=== PATIENT | female | born 1980 | race Caucasian/White ===

== ENCOUNTER → 2022-02-06 13:58 | Outpatient (BNVA) | payer OTHER, SELFPAY | PROVIDERS: Family Provider Nurse Practitioner; Visit Provider Obstetrics & Gynecology | DX: N92.0 Excessive and frequent menstruation with regular cycle (principal); N83.209 Unspecified ovarian cyst, unspecified side; N85.2 Hypertrophy of uterus; Z98.891 History of uterine scar from previous surgery | CPT/HCPCS: 76830 ==

== ENCOUNTER 2025-08-22 12:59 | Inpatient (IN) | payer OTHER, SELFPAY ==
[2025-08-22] VITALS (7 sets, daily range): BP systolic 171–197; BP diastolic 103–130; PULSE 63–105; RESP 16–20; TEMP 36.4–36.8; O2SAT 93–100; BMI 33.9
--- NOTE | 2025-08-22 13:06 | ECG_ITS ---
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 Measurements Intervals [place] Rate: 97 P: 36 CA: 148 QRS: 46 QRSD: 81 T: -8 QT: 339 QTc: 431 Interpretive Statements SINUS RHYTHM NONSPECIFIC T-WAVE ABNORMALITY No previous ECG available for comparison Electronically Signed On 08-23-2025 08:51:19 [employer] OFFICER by Marquita Silva M.D. [id number]
--- NOTE | 2025-08-22 13:37 | XRR_ITS ---
PROCEDURE INFORMATION: Exam: XR Chest Exam date and time: 08/22/2025 2:22 PM Age: 45 years old Clinical indication: Chest pressure; Mediastinal chest pain; Chest pain with hot flashes TECHNIQUE: Imaging protocol: Radiologic exam of the chest. Views: 1 view. COMPARISON: No relevant prior studies available. FINDINGS: Lungs: Unremarkable. No consolidation. Pleural spaces: Unremarkable. No pleural effusion. No pneumothorax. Heart/Mediastinum: Unremarkable. No cardiomegaly. Bones/joints: Unremarkable. XR/XR chest 1V portable [id number] IMPRESSION: No acute findings.
[2025-08-22 13:58] LABS: Hematocrit 40.1 % (36-47); Hemoglobin 13.10 g/dL (11.27-16.99); Mean Corpuscular HGB Conc 32.7 g/dL (30-55); Mean Corpuscular Hemoglobin 29.3 pg (27-33); Mean Corpuscular Volume 89.7 fl (85-98); Nucleated Red Blood Cells % 0 %; Platelet Count 335 10^3/cmm (157-399); Red Blood Count 4.47 10^6/uL (3.85-5.65); White Blood Count 10.47 10^3/uL (3.29-11.43)
[2025-08-22 14:25] LABS: Alanine Aminotransferase 23 U/L (0-33); Albumin Level 4.3 g/dL (3.5-5.2); Alkaline Phosphatase 78 U/L (35-105); Anion Gap 16.9 (5-19); Aspartate Amino Transferase 20 U/L (0-32); Blood Urea Nitrogen 4 mg/dL (6-20); Calcium 8.9 mg/dL (8.5-10.5); Carbon Dioxide 21 mmol/L (22-29); Chloride 106 mmol/L (98-107); Globulin 2.1 g/dL (1.3-4.6); Glucose 90 mg/dL (65-115); NT Pro B Type Natriuretic Pept 676 pg/mL (0-125); Osmolality Calculated 286 mOsm/kg (285-295); Potassium 3.9 mmol/L (3.5-5.1); Sodium 140 mmol/L (136-145); Total Protein 6.4 g/dL (6.6-8.7)
[2025-08-22 14:30] LABS: Troponin(5th) Baseline 315 ng/L (0-10)
--- NOTE | 2025-08-22 14:32 | W.ED.CHESTPA ---
HPI - Chest Pain General: Chief Complaint: Chest Pain Stated Complaint: CP and both Shoulder pain Time Seen by Provider: 08/22/25 14:29 History of Present Illness: 45-year-old female with no known past medical problems who presents to the emergency room with chest pain. This has been going on for several days now. Says it actually has improved some today. No shortness of breath. No lower extremity swelling. She does smoke tobacco and has a strong family history of heart disease. No known personal heart disease. No nausea or vomiting. No altered mental status. No cough. No fever. Related Data Home Medications ?Medication ?Instructions ?Recorded ?Confirmed hydrochlorothiazide 25 mg tablet 25 mg PO DAILY 01/27/22 02/11/22 Allergies Allergy/AdvReac Type Severity Reaction Status Date / Time Sulfa (Sulfonamide Allergy Unknown unknown Verified 02/11/22 15:53 Antibiotics) Review of Systems Narrative: Constitutional symptoms: Negative except as documented in HPI. Skin symptoms: Negative except as documented in HPI. Eye symptoms: Negative except as documented in HPI. ENMT symptoms: Negative except as documented in HPI. Respiratory symptoms: Negative except as documented in HPI. Cardiovascular symptoms: Negative except as documented in HPI. Gastrointestinal symptoms: Negative except as documented in HPI. Genitourinary symptoms: Negative except as documented in HPI. Musculoskeletal symptoms: Negative except as documented in HPI. Neurologic symptoms: Negative except as documented in HPI. Psychiatric symptoms: Negative except as documented in HPI. Endocrine symptoms: Negative except as documented in HPI. [facility] ED PFSH: Medical History (Updated 08/22/25 @ 14:51 by Marina Leonard MD) Ovarian cyst Surgical History (Updated 02/05/22 @ 19:51 by Edward Forte MD) H/O section S/P cholecystectomy Family History (Updated 01/27/22 @ 14:18 by Gely Whitten RN) Mother Diabetes Hyperlipidemia Hypertension Stroke Thyroid disease Heart disease Breast cancer, Onset Age: 45 Father Hyperlipidemia Hypertension Grandfather Colon cancer paternal, age unknown Family/Other Colon cancer, Onset Age: 63 paternal uncle Denies family history of Ovarian cancer Clotting disorder Anesthesia complication Bleeding disorder Uterine cancer Physical Exam Narrative: EXAM NARRATIVE: General: Alert, no acute distress. Skin: Warm, dry. Head: Normocephalic, atraumatic. Neck: Supple, trachea midline. Eye: Extraocular movements are intact. Ears, nose, mouth and throat: mucosa moist. Cardiovascular: Regular, Normal peripheral perfusion. Respiratory: Lungs are clear to auscultation, respirations are non-labored, breath sounds are equal, Symmetrical chest wall expansion. Gastrointestinal: Soft, Nontender, Non distended Musculoskeletal: Normal ROM, no deformity. Neurological: Alert and oriented, No focal neurological deficit observed. Psychiatric: Cooperative, appropriate mood & affect. Course Vital Signs: Vital signs: Vital Signs Temperature 98.3 F 08/22/25 13:15 Pulse Rate 64 08/22/25 15:00 Respiratory Rate 16 08/22/25 15:00 Blood Pressure 188/118 08/22/25 15:00 Pulse Oximetry 100 08/22/25 15:00 Oxygen Delivery Me thod Room Air 08/22/25 13:15 MDM - Chest Pain Medical Decision Making Medical decision making Patient's reason for coming to the emergency room: Chest pain Social determinants: Patient is unemployed. Patient is a smoker. I reviewed the patient's medical record. Last visit was in 2021 by telemedicine for an ovarian cyst. I reviewed the patient's current home meds Patient takes no chronic medications. Alternate historians: None Differential diagnosis for patient with chest pain includes but is not limited to and based on the above HPI, review of systems and physical exam: Pneumonia. unstable angina. angina. Acute coronary syndrome / CT. Pulmonary embolism. Costochondritis / musculoskeletal. Pleurisy. Pericarditis. Esophageal spasm. Pancreatitis. Cholecystitis. Orders placed to evaluate differential diagnosis based on the above differential, HPI and physical exam EKG: Time 1314. Rate 97. Normal sinus rhythm, nonspecific T wave changes, no ectopy, normal MD & QRS intervals, This was reviewed and interpreted by myself the ER physician at 1317 Lab Review: Laboratory results were reviewed and interpreted by myself the emergency room physician. No leukocytosis. No anemia. No renal failure. Initial troponin is elevated at 315. proBNP is mildly elevated. Chest x-ray: No acute process. No infiltrate. No pneumothorax. This was reviewed and interpreted by myself the emergency room physician. I also reviewed the radiology report. Assessment of risk: Level of risk: Tobacco dependence, strong family history. High risk patient for coronary artery disease. Hospitalization considerations: Patient is being admitted Clinical decision support: Heart score of 7. Recommends admission and cardiology consult. Reexamination: Patient remained stable. No increased work of breathing. No altered mental status. No focal motor deficits. Consultation: I spoke with Dr. Silva who is on-call for cardiology. He recommends Plavix, heparin, aspirin and admit to the hospitalist service. He will consult Consultation: I spoke with Dr. Dr. Headley who is on-call for the hospitalist service who agrees to admission. Assessment and plan: Non-ST elevation myocardial infarction Accelerated hypertension ?Heparin drip. Nitroglycerin. 300 mg p.o. Plavix. -I discussed the patient with the hospitalist on-call who is admitting the patient. - Discussed findings and plan with patient. Answered any questions. - All laboratory values were reviewed and interpreted personally by myself, the ER physician - All imaging was reviewed and interpreted personally by myself, the ER physician. - Evaluation and treatment of this problem were appropriate in the emergency setting Lab Data 08/22/25 13:48 08/22/25 13:48 Radiology Impressions Chest X-Ray 08/22/25 13:37 IMPRESSION: No acute findings. Laboratory Results WBC 10.47 10^3/uL (3.29-11.43) 08/22/25 13:48 RBC 4.47 10^6/uL (3.85-5.65) 08/22/25 13:48 Hgb 13.10 g/dL (11.27-16.99) 08/22/25 13:48 Hct 40.1 % (36-47) 08/22/25 13:48 MCV 89.7 fl (85-98) 08/22/25 13:48 MCH 29.3 pg (27-33) 08/22/25 13:48 MCHC 32.7 g/dL (30-55) 08/22/25 13:48 RDW 12.9 % (12.1-15.1) 08/22/25 13:48 Plt Count 335 10^3/cmm (157-399) 08/22/25 13:48 MPV 10.4 fL (7.4-10.4) 08/22/25 13:48 Neut % (Auto) 74.8 % 08/22/25 13:48 Lymph % (Auto) 18.2 % 08/22/25 13:48 Karnes % (Auto) 5.4 % 08/22/25 13:48 Eos % (Auto) 1.0 % 08/22/25 13:48 Baso % (Auto) 0.4 % 08/22/25 13:48 Neut # (Auto) 7.83 10^3/uL (1.8-7.7) H 08/22/25 13:48 Lymph # (Auto) 1.9 10^3/uL (0.8-4.8) 08/22/25 13:48 Karnes # (Auto) 0.6 10^3/uL (0.2-0.9) 08/22/25 13:48 Eos # (Auto) 0.1 10^3/uL (0.0-0.8) 08/22/25 13:48 Baso # (Auto) 0.0 10^3/uL (0.0-0.1) 08/22/25 13:48 Nucleated RBC % (auto) 0 % 08/22/25 13:48 Nucleated RBCs # 0.0 /100WBC 08/22/25 13:48 Sodium 140 mmol/L (136-145) 08/22/25 13:48 Potassium 3.9 mmol/L (3.5-5.1) 08/22/25 13:48 Chloride 106 mmol/L (98-107) 08/22/25 13:48 Carbon Dioxide 21 mmol/L (22-29) L 08/22/25 13:48 Anion Gap 16.9 (5-19) 08/22/25 13:48 BUN 4 mg/dL (6-20) L 08/22/25 13:48 Creatinine 0.9 mg/dL (0.5-0.9) 08/22/25 13:48 GFR Calculation 68.0 mL/min (90-130) L 08/22/25 13:48 Glucose 90 mg/dL (65-115) 08/22/25 13:48 Calculated Osmolality 286 mOsm/kg (285-295) 08/22/25 13:48 Calcium 8.9 mg/dL (8.5-10.5) 08/22/25 13:48 Total Bilirubin 0.3 mg/dL (0.15-1.2) 08/22/25 13:48 AST 20 U/L (0-32) 08/22/25 13:48 ALT 23 U/L (0-33) 08/22/25 13:48 Alkaline Phosphatase 78 U/L (35-105) 08/22/25 13:48 Troponin T Baseline 315 ng/L (0-10) H* 08/22/25 13:48 NT-Pro-B Natriuret Pep 676 pg/mL (0-125) H 08/22/25 13:48 Total Protein 6.4 g/dL (6.6-8.7) L 08/22/25 13:48 Albumin 4.3 g/dL (3.5-5.2) 08/22/25 13:48 Globulin 2.1 g/dL (1.3-4.6) 08/22/25 13:48 All radiology interpretation(s) finalized by discharge Clincial Decision Support The following clinical decision support tools were used to aid in care of the patient HEART Score -> History: Highly Suspicious, EKG: Non-specific Changes, Age: 45-64 yrs, Risk Factors: 1 or 2 Risk Factors, Troponin: Baseline Trop >45 ng/L. Resulting HEART Score: 7. 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
[2025-08-22] MEDS: heparin 5,000 unit/mL INJ 1 mL IVP (15:30)
[2025-08-22] MEDS: heparin drip 25,000 UNIT/500 ML PREMIX 25 UNIT IV (15:32)
--- NOTE | 2025-08-22 15:37 | ECG_ITS ---
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 Measurements Intervals [place] Rate: 86 P: 1 AL: 161 QRS: 6 QRSD: 89 T: 68 QT: 351 QTc: 421 Interpretive Statements SINUS RHYTHM NONSPECIFIC T-WAVE ABNORMALITY Compared to ECG 08/22/2025 13:14:02 No significant changes Electronically Signed On 08-24-2025 00:09:19 LOOM SETTER by Marquita Silva M.D. [id number]
--- NOTE | 2025-08-22 15:58 | USCV_ITS ---
Cyndi Godoy Age: 45 Gender: F : 1980 Exam Date: 08/22/2025 16:21 Ordering Phys: Tai Rocha MD Technologist: KORTNEY [place]am [place] [facility] [place] Indication: nstemi BP: 174 / 108 HR: 81 Rhythm: Sinus Technical Quality: Adequate MEASUREMENTS (Male / Female) Normal Values 2D ECHO LV Diastolic Diameter PLAX 5.7 cm 4.2 - 5.9 / 3.9 - 5.3 cm IVS Diastolic Thickness 0.9 cm 0.6 - 1.0 / 0.6 - 0.9 cm IVS Systolic Thickness 1.0 cm LVPW Diastolic Thickness 1.0 cm 0.6 - 1.0 / 0.6 - 0.9 cm LVPW Systolic Thickness 0.9 cm LVOT Diameter 2.0 cm LV Ejection Fraction 2D Teich 23.4 % LV Ejection Fraction MOD 4C 57.6 % LV Ejection Fraction MOD 2C 50.9 % LV Ejection Fraction 2C AL 52.4 % LA Diameter 2.7 cm RA Systolic Volume 4C AL 43.3 ml RA Systolic Volume 4C MOD 43.1 ml LA Sys Volume AL 31.3 cm cubed LA Sys Volume Index AL 15.2 cm cubed/m squared Aorta at Sinotubular Diameter 2.4 cm IVC Diameter 2.4 cm M-MODE LA Ao Ratio MM 1.2 AV Cusp Separation MM 1.7 cm DOPPLER AV Peak Velocity 107.0 cm/s LVOT Peak Velocity 77.0 cm/s AV Area Cont Eq vti 2.7 cm squared AV Area Cont Eq pk 2.2 cm squared MV Peak Velocity 79.0 cm/s MV Area PHT 4.8 cm squared Mitral E to A Ratio 0.9 TR Peak Velocity 159.0 cm/s TR Peak Gradient 10.1 mmHg TV Peak E Velocity 75.0 cm/s PV Peak Velocity 107.0 cm/s FINDINGS Left Ventricle Normal LV size with borderline low ejection fraction of 52%. Mild diffuse hypokinesis of the inferolateral wall segment Right Ventricle Right Atrium Normal right atrial size. Left Atrium Normal left atrial size. IA Septum Normal interatrial septum. Mitral Valve Thickened mitral valve. Aortic Valve No gross abnormalities no Tricuspid Valve No gross abnormalities in Pulmonic Valve Pulmonic valve not well visualized. Pericardium No pericardial effusion. Aorta Normal aortic annulus size. IVC Normal inferior vena cava. CONCLUSIONS Normal LV size with borderline low ejection fraction of 52%. Mild diffuse hypokinesis of the inferolateral wall segment. Thickened mitral valve. No significant stenotic or regurgitant lesions Normal chamber sizes There is no pericardial effusion. There are no intracardiac masses. No similar previous studies are available for comparison Dr Marquita Silva MD [facility] (Electronically Signed) Final Date: 22 August 2025 16:55 S
--- NOTE | 2025-08-22 15:59 | P.HP_ITS ---
Providers/Chief Complaint 2 Admitting Physician: Apolinar Headley MD Chief Complaint: CP and both Shoulder pain History of Present Illness Cyndi Godoy is a 45 year old female with a past medical history of hypertension, who presents [facility] for chest pain. Patient reports that she started developing chest pain last Thursday, was substernal radiating up to her neck, associated with shortness of breath she noticed that her blood pressure was elevated her systolic blood pressure was over 200, she tells me that she has a history of hypertension, she was diagnosed with it a few years ago, she thought it was secondary to her consumption of energy drinks, and she stopped using energy drinks and her blood pressure improved so she stopped her blood pressure medications. She denies being , she has had a bilateral tubal ligation. She denies using energy drinks. She does smoke. She does vape. Denies any drug use such as cocaine. She reports that today she had substernal chest pain radiating up to her neck, currently the chest pain has improved but is persisting to some degree she describes the pain as a pressure- like pain, aching in her chest Review of Systems 2 Const: Denies: fever(s) or chills Card: Reports: chest pain Medications/Allergies Home Medications ?Medication ?Instructions ?Recorded ?Confirmed ?Last Taken ?Type No Known Home Medications 08/22/2508/05 Unknown History Allergies Allergy/AdvReac Type Severity Reaction Status Date / Time Sulfa (Sulfonamide Allergy Unknown unknown Verified 02/11/22 15:53 Antibiotics) PFSH Acute 2 PFSH: Medical History Ovarian cyst Surgical History (Updated 02/05/22 @ 19:51 by Edward Forte MD) H/O section S/P cholecystectomy Family History (Updated 01/27/22 @ 14:18 by Gely Whitten RN) Mother Diabetes Hyperlipidemia Hypertension Stroke Thyroid disease Heart disease Breast cancer, Onset Age: 45 Father Hyperlipidemia Hypertension Grandfather Colon cancer paternal, age unknown Family/Other Colon cancer, Onset Age: 63 paternal uncle Denies family history of Ovarian cancer Clotting disorder Anesthesia complication Bleeding disorder Uterine cancer Vitals/I&O/Wt Last Vital Signs Temp 98.3 F 08/22/25 13:15 Pulse 64 08/22/25 15:00 Resp 16 08/22/25 15:00 BP 188/118 08/22/25 15:00 Pulse Ox 100 08/22/25 15:00 O2 Del Method Room Air 08/22/25 13:15 Weight last 48 hrs Weight 89.811 kg Physical Exam 2 Const: COMMON NORMALS: no acute distress and patient oriented x3 HENMT: COMMON NORMALS: normocephalic HEAD & SCALP: normocephalic Resp: COMMON NORMALS: normal respiratory effort, No retractions, No use of accessory muscles and clear to auscultation bilaterally AUSCULTATION: clear to auscultation bilaterally Cardio: COMMON NORMALS: regular rate, regular rhythm, S1 normal heart sound present and S2 normal heart sound present RATE: regular rate RHYTHM: r egular rhythm HEART SOUNDS: S1 normal heart sound present and S2 normal heart sound present GI: COMMON NORMALS: Normal to inspection, nondistended, normoactive bowel sounds present, Soft to palpation and non-tender Extremity: COMMON NORMALS: no calf tenderness and no pedal edema Neuro: COMMON NORMALS: patient oriented x3 Psych: COMMON NORMALS: mental status grossly normal Data 08/22/25 13:48 08/22/25 13:48 A&P Assessment and plan 1. Accelerated hypertension: 2. Non-ST elevated myocardial infarction: 3. Unstable angina: Plan: Unstable angina - With NSTEMI - Initial troponin 315, no acute ST-T wave changes, T wave inversion in lead III Plan -Keep n.p.o. -Stat cardiac echo -Plavix 300 mg, followed by 75 mg -Aspirin 325 followed by 81 mg -Heparin drip -Monitor for recurrent chest pain -Nitro for apparent chest pain -Coreg -Cardiology consulted -Full code -Heparin drip for DVT prophylaxis PDMP PDMP Reviewed: Not Reviewed Attestations 2 Medical Necessity Statement*: Patient requires hospitalization, inpatient, greater than 2 midnights for chest pain, unstable angina, NSTEMI Diagnoses Accelerated hypertension I10 Non-ST elevated myocardial infarction I21.4 Unstable angina I20.0
[2025-08-22 16:11] LABS: Troponin 5 2HR 312.2 ng/L (0-10); Troponin 5 2HR Delta -2.8 ABS# (0-10)
--- NOTE | 2025-08-22 16:45 | PC.NURSE ---
Pt arrives to CSU from ED. She is alert and oriented x 4. NO chest pain rpeorted. Resp even and unlabored. Heparin gtt infusing without difficultly. Sinus rhythm noted on monitor.
[2025-08-22] MEDS: pantoprazole 40 mg SDV IVP (17:07)
[2025-08-22 17:32] LABS: Cholesterol 233 mg/dL (0-200); HDL Cholesterol 41 mg/dL (60-100); NT Pro B Type Natriuretic Pept 701 pg/mL (0-125); Thyroid Stimulating Hormone 2.30 uIU/mL (0.27-4.20); Triglycerides 106 mg/dL (0-150)
--- NOTE | 2025-08-22 17:40 | P.CONIM_ITS ---
Providers/Reason For Consult 2 Consulting Physician/Specialty*: SHERIN Silva MD/cardiology Reason for Consult*: Patient with chest pain and elevated troponin T. Requesting Physician: Dr. Headley Attending Physician: Apolinar Headley MD History of Present Illness History of Present Illness Cyndi Godoy is a 45 year old female with a history of high blood pressure, presenting with chest pain and elevated troponin T. This patient has no significant past medical history. Apparently she has been in her baseline state of health up until last Thursday when she had the first episode of chest pain. The pain was on the upper part of the chest, radiating to both sides of the neck and to the back. She had some associated shortness of breath and nausea. No palpitations, dizziness or syncopal episode. Initially the pain was moderate to severe. The pain might have lasted for a couple of hours and then gradually subsided. She had some brief episodes of pain through the night. But since Thursday morning, she has been feeling okay with no recurrence of chest pain up until this morning when she started having similar type of pain. No definite precipitating factors. Intensity of the pain was more or less similar. Because of the recurrence of these pains, she was brought to the hospital. Her troponin T was found to be elevated in the 300 range at the baseline. No significant delta at 2 hours. She has no previous history for coronary artery disease, myocardial infarction or congestive heart failure. No history for any hypertension or diabetes. She was found to have high cholesterol based on the blood test today. She smokes half pack a day. She also vapes once in a while. No alcohol abuse or any other substance abuse. Her father is known to have coronary disease and had a coronary artery bypass surgery in his 60s. No other relevant family history. Review of Systems 2 Narrative: CONSTITUTIONAL: No fever or chills. EYES: No blurring of vision or other visual disturbances lately. ENT: No hoarseness of voice, auditory disturbances or sore throat. CARDIOVASCULAR: As mentioned above. RESPIRATORY: No significant cough. GASTROINTESTINAL: No hematemesis or melena. GENITOURINARY: No dysuria or hematuria. INTEGUMENTARY: No skin rashes or history of skin cancer. NEURO: No transient ischemic attacks or amaurosis. PSYCHIATRIC: No history of psychosis or major depression. HEMATOLOGIC: No bleeding disorders or significant anemia. ENDOCRINE: No history of polyuria or polydipsia. MUSCULOSKELETAL: No recent joint pain or swelling. ALLERGY/IMMUNOLOGY: As mentioned above. Medications/Allergies Home Medications ?Medication ?Instructions ?Recorded ?Confirmed ?Last Taken ?Type No Known Home Medications 08/22/2508/05 Unknown History Allergies Allergy/AdvReac Type Severity Reaction Status Date / Time Sulfa (Sulfonamide Allergy Unknown unknown Verified 02/11/22 15:53 Antibiotics) Current Medications Generic Name Dose Route Start Last Admin Trade Name Olegario PRN Reason Stop Dose Admin Carvedilol 3.125 mg 08/22/25 17:00 08/22/25 17:07 Carvedilol 3.125 Mg Tablet PO 3.125 mg Q12H STORMY Administration Heparin Sodium/Sodium Chloride 25,000 unit in 500 mls @ 0 mls/hr 08/22/25 14:45 08/22/25 15:32 Heparin Drip IV 13.92 unit/kg/hr CONT STORMY 25 mls/hr Protocol Administration Per Protocol Pantoprazole Sodium 40 mg 08/22/25 16:43 08/22/25 17:07 Pantoprazole 40 Mg Sdv IVP 40 mg Q24H STORMY Administration PFSH Acute 2 PFSH: Medical History Ovarian cyst Surgical History H/O section S/P cholecystectomy Family History Mother Diabetes Hyperlipidemia Hypertension Stroke Thyroid disease Heart disease Breast cancer, Onset Age: 45 Father Hyperlipidemia Hypertension Grandfather Colon cancer paternal, age unknown Family/Other Colon cancer, Onset Age: 63 paternal uncle Denies family history of Ovarian cancer Clotting disorder Anesthesia complication Bleeding disorder Uterine cancer Vitals/I&O/Wt Last Vital Signs Temp 97.5 F L 08/22/25 16:43 Pulse 93 08/22/25 16:43 Resp 19 H 08/22/25 16:43 BP 178/110 08/22/25 16:43 Pulse Ox 100 08/22/25 16:43 O2 Del Method Room Air 08/22/25 16:43 Weight last 48 hrs Weight 203 lb 11.314 oz Weight 198 lb Physical Exam 2 Narrative: GENERAL: The patient is alert and oriented times three. Not in any acute distress. Moderately obese HEENT: No significant pallor, icterus or lymphadenopathy.Oral cavity: There are no mucous membrane lesions. NECK: Trachea appears to be central. No masses noted. No JVD or thyromegaly appreciated. RESPIRATORY: Chest is symmetrical. No intercostals muscle retraction or any accessory muscle activation. There is no chest wall tenderness. Breath sounds are heard bilaterally. No rales or rhonchi heard. No evidence of any consolidation. BREASTS: Deferred. HEART: The heart sounds are normal. No S3 or S4. No significant murmurs. No pericardial rub ABDOMEN: No vessel pulsations or distention. No tenderness. No organomegaly appreciated. Bowel sounds are normally heard. : Deferred. RECTAL: Deferred. LYMPHATIC: No lymphadenopathy noted in the neck. EXTREMITIES: No edema or cyanosis. No clubbing. MUSCULOSKELETAL: No acute joint deformities or swelling SKIN: There are no significant rashes or ecchymosis NEUROPSYCHIATRIC: The patient is alert and oriented x3. Appears to be in a good mood. No tremors or rigidity noted. Data 08/22/25 13:48 08/22/25 13:48 Other Labs: Laboratory Last Values WBC 10.47 10^3/uL (3.29-11.43) 08/22/25 13:48 RBC 4.47 10^6/uL (3.85-5.65) 08/22/25 13:48 Hgb 13.10 g/dL (11.27-16.99) 08/22/25 13:48 Hct 40.1 % (36-47) 08/22/25 13:48 MCV 89.7 fl (85-98) 08/22/25 13:48 MCH 29.3 pg (27-33) 08/22/25 13:48 MCHC 32.7 g/dL (30-55) 08/22/25 13:48 RDW 12.9 % (12.1-15.1) 08/22/25 13:48 Plt Count 335 10^3/cmm (157-399) 08/22/25 13:48 MPV 10.4 fL (7.4-10.4) 08/22/25 13:48 Neut % (Auto) 74.8 % 08/22/25 13:48 Lymph % (Auto) 18.2 % 08/22/25 13:48 [place] % (Auto) 5.4 % 08/22/25 13:48 Eos % (Auto) 1.0 % 08/22/25 13:48 Baso % (Auto) 0.4 % 08/22/25 13:48 Neut # (Auto) 7.83 10^3/uL (1.8-7.7) H 08/22/25 13:48 Lymph # (Auto) 1.9 10^3/uL (0.8-4.8) 08/22/25 13:48 [place] # (Auto) 0.6 10^3/uL (0.2-0.9) 08/22/25 13:48 Eos # (Auto) 0.1 10^3/uL (0.0-0.8) 08/22/25 13:48 Baso # (Auto) 0.0 10^3/uL (0.0-0.1) 08/22/25 13:48 Nucleated RBC % (auto) 0 % 08/22/25 13:48 Nucleated RBCs # 0.0 /100WBC 08/22/25 13:48 Sodium 140 mmol/L (136-145) 08/22/25 13:48 Potassium 3.9 mmol/L (3.5-5.1) 08/22/25 13:48 Chloride 106 mmol/L (98-107) 08/22/25 13:48 Carbon Dioxide 21 mmol/L (22-29) L 08/22/25 13:48 Anion Gap 16.9 (5-19) 08/22/25 13:48 BUN 4 mg/dL (6-20) L 08/22/25 13:48 Creatinine 0.9 mg/dL (0.5-0.9) 08/22/25 13:48 GFR Calculation 68.0 mL/min (90-130) L 08/22/25 13:48 Glucose 90 mg/dL (65-115) 08/22/25 13:48 Estimat Average Glucose 103 08/22/25 13:48 Hemoglobin A1c 5.2 % (4.0-6.0) 08/22/25 13:48 Calculated Osmolality 286 mOsm/kg (285-295) 08/22/25 13:48 Calcium 8.9 mg/dL (8.5-10.5) 08/22/25 13:48 Total Bilirubin 0.3 mg/dL (0.15-1.2) 08/22/25 13:48 AST 20 U/L (0-32) 08/22/25 13:48 ALT 23 U/L (0-33) 08/22/25 13:48 Alkaline Phosphatase 78 U/L (35-105) 08/22/25 13:48 Troponin T Baseline 315 ng/L (0-10) H* 08/22/25 13:48 Troponin T 120 Minute 312.2 ng/L (0-10) H 08/22/25 15:26 Delta Troponin T -2.8 ABS# (0-10) L 08/22/25 15:26 NT-Pro-B Natriuret Pep 701 pg/mL (0-125) H 08/22/25 15:26 Total Protein 6.4 g/dL (6.6-8.7) L 08/22/25 13:48 Albumin 4.3 g/dL (3.5-5.2) 08/22/25 13:48 Globulin 2.1 g/dL (1.3-4.6) 08/22/25 13:48 Triglycerides 106 mg/dL (0-150) 08/22/25 15:26 Cholesterol 233 mg/dL (0-200) H 08/22/25 15:26 LDL Cholesterol, Calc 171 mg/dL (50-129) H 08/22/25 15:26 HDL Cholesterol 41 mg/dL (60-100) L 08/22/25 15:26 LDL/HDL Ratio 4.17 RATIO (0.00-3.22) H 08/22/25 15:26 Cholesterol/HDL Ratio 5.68 mg/dL (0.0-4.40) H 08/22/25 15:26 TSH 2.30 uIU/mL (0.27-4.20) 08/22/25 15:26 Other data: The EKG showed normal sinus rhythm with nonspecific ST-T changes in the anterolateral and inferior leads A&P Assessment and plan 1. Non-ST elevated myocardial infarction: In view of presenting symptoms , abnormal EKG and the elevated troponin T, her clinical features are consistent with a an unstable angina with a non-ST elevation myocardial infarction. 2. Accelerated hypertension: Patient had a blood pressure of 193/124 at the time of admission. The blood pressure seems to be coming down. I may add amlodipine 5 mg p.o. now and daily. 3. Dyslipidemia: Patient was found to have elevated LDL of 171. I may start her on a higher dose of statin namely Lipitor 80 mg p.o. now and daily. She need to have follow-up evaluation for any liver or muscle injury. 4. Smoking addiction: Patient is strongly advised to quit smoking. Plan: Echocardiogram was reviewed. The LV ejection fraction was around 52%. She was found to have mild diffuse hypokinesis of the inferolateral wall segment. Patient may be severe with Plavix, Lovenox, aspirin, beta-natalya, nitrates and other symptomatic measures. Patient requires a cardiac catheterization to further evaluate her coronary status and decide on further management. The risks and benefits of the procedure discussed with the patient. The risk of bleeding, hematoma, vascular injury, myocardial infarction, myocardial perforation, malignant cardiac arrhythmias ,CVA, renal failure and other concomitant complications were explained in detail. Patient understood this well and consented to proceed. We may consider doing the coronary angiogram sometime tomorrow. She will be kept n.p.o. after midnight. Possible cardiac catheterization ttomorrow Based on the results of the above tests and the patient's clinical progress, further recommendations will be made. Thank you for the opportunity to evaluate this patient and make these recommendations PDMP PDMP Reviewed: Not Reviewed Coding Level of Care Code 92930 Diagnoses Non-ST elevated myocardial infarction I21.4 Accelerated hypertension I10 Dyslipidemia E78.5 Smoking addiction F17.200
[2025-08-22 18:44] LABS: Estmated Average Glucose 103; Hemoglobin A1C 5.2 % (4.0-6.0)
--- NOTE | 2025-08-22 19:53 | ECG_ITS ---
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 Measurements Intervals [place] Rate: 82 P: 60 VT: 189 QRS: 55 QRSD: 90 T: -14 QT: 357 QTc: 417 Interpretive Statements SINUS RHYTHM LOW QRS VOLTAGE IN PRECORDIAL LEADS [QRS DEFLECTION < 1.0 mV IN CHEST LEADS] NONSPECIFIC T-WAVE ABNORMALITY Compared to ECG 08/22/2025 15:28:33 Low QRS voltage now present T-wave abnormality still present Electronically Signed On 08-23-2025 09:53:05 [employer] by Marquita Silva M.D. [email or web address]
[2025-08-22 21:46] LABS: Partial Thromboplastin Time 108.9 SECONDS (23.9-36.7); Troponin 5 6HR 362.0 ng/L (0-10); Troponin 5 6HR Delta 47.0 ng/L (0-12)
[2025-08-23] VITALS (39 sets, daily range): BP systolic 113–171; BP diastolic 65–122; PULSE 66–107; RESP 12–28; TEMP 36.7–37; O2SAT 85–98; BMI 32.4
[2025-08-23 04:26] LABS: Hematocrit 39.5 % (36-47); Hemoglobin 13.00 g/dL (11.27-16.99); Mean Corpuscular HGB Conc 32.9 g/dL (30-55); Mean Corpuscular Hemoglobin 29.6 pg (27-33); Mean Corpuscular Volume 90.0 fl (85-98); Nucleated Red Blood Cells % 0 %; Platelet Count 330 10^3/cmm (157-399); Red Blood Count 4.39 10^6/uL (3.85-5.65); White Blood Count 9.76 10^3/uL (3.29-11.43)
[2025-08-23 04:39] LABS: Partial Thromboplastin Time 78.7 SECONDS (23.9-36.7)
[2025-08-23 04:47] LABS: Alanine Aminotransferase 20 U/L (0-33); Albumin Level 4.0 g/dL (3.5-5.2); Alkaline Phosphatase 73 U/L (35-105); Anion Gap 14.7 (5-19); Aspartate Amino Transferase 18 U/L (0-32); Blood Urea Nitrogen 6 mg/dL (6-20); Calcium 8.8 mg/dL (8.5-10.5); Carbon Dioxide 24 mmol/L (22-29); Chloride 105 mmol/L (98-107); Globulin 2.4 g/dL (1.3-4.6); Glucose 88 mg/dL (65-115); Magnesium 2.2 mg/dL (1.7-2.3); Osmolality Calculated 287 mOsm/kg (285-295); Potassium 3.7 mmol/L (3.5-5.1); Sodium 140 mmol/L (136-145); Total Protein 6.4 g/dL (6.6-8.7)
--- NOTE | 2025-08-23 08:25 | PM.PN ---
Subjective Medications: Medication Review Details: Current Medications Acetaminophen (Acetaminophen 325 Mg Tablet) 650 mg PO Q6H PRN PRN Reason: Mild/Mod Pain Or Temp >/= 101 Amlodipine Besylate (Amlodipine 5 Mg Tablet) 5 mg PO DAILY [facility] Last Admin: 08/23/25 04:41 Dose: 5 mg Aspirin (Aspirin 81 Mg Ec Tablet) 81 mg PO DAILY [facility] Last Admin: 08/23/25 04:41 Dose: 81 mg Atorvastatin Calcium (Atorvastatin 40 Mg Tablet) 80 mg PO BEDTIME [facility] Last Admin: 08/22/25 20:59 Dose: 80 mg Carvedilol (Carvedilol 3.125 Mg Tablet) 3.125 mg PO Q12H [facility] Last Admin: 08/23/25 04:41 Dose: 3.125 mg Clopidogrel Bisulfate (Clopidogrel 75 Mg Tablet) 75 mg PO DAILY [facility] Last Admin: 08/23/25 04:41 Dose: 75 mg Heparin Sodium (Porcine) (Heparin 5,000 Unit/Ml Inj 1 Ml) 0 unit IVP PRN PRN; Protocol PRN Reason: Heparin Weight Based Protocol -Subsequent Bolus Heparin Sodium/Sodium Chloride (Heparin Drip) 25,000 unit in 500 mls @ 0 mls/hr IV CONT [facility]; Protocol Last Titration: 08/23/25 04:49 Dose: 10.02 unit/kg/hr, 18 mls/hr Morphine Sulfate (Morphine 4 Mg/Ml Sdv 1 Ml) 2 mg IVP Q4H PRN PRN Reason: SEVERE PAIN Naloxone HCl (Naloxone 0.4 Mg/Ml Sdv) 0.1 mg IVP Q2M PRN PRN Reason: OPIATERV Nitroglycerin (Nitroglycerin 0.4 Mg Sublingual Tablet) 0.4 mg SUBLINGUAL Q5M PRN PRN Reason: CHEST PAIN Ondansetron HCl (Ondansetron 2 Mg/Ml Sdv 2 Ml) 4 mg IVP Q8H PRN PRN Reason: vomiting, or N/V if npo Pantoprazole Sodium (Pantoprazole 40 Mg Sdv) 40 mg IVP Q24H [facility] Last Admin: 08/22/25 17:07 Dose: 40 mg Vitals/I&O/Wt Last Vital Signs Temp 98.5 F 08/23/25 00:00 Pulse 73 08/23/25 04:00 Resp 12 08/23/25 04:00 BP 151/97 08/23/25 04:00 Pulse Ox 97 08/23/25 04:00 O2 Del Method Room Air 08/23/25 04:00 08/22/25 08/23/25 08/23/25 22:59 06:59 14:59 Intake Total 161.667 / 161.667 136.333 / 298.000 Balance 161.667 / 161.667 136.333 / 298.000 Weight last 48 hrs Weight 195 lb 1.745 oz Weight 203 lb 11.314 oz Weight 198 lb Physical Exam Narrative: GENERAL: The patient is alert and oriented times three. Not in any acute distress. Moderately obese HEENT: No significant pallor, icterus or lymphadenopathy.Oral cavity: There are no mucous membrane lesions. NECK: Trachea appears to be central. No masses noted. No JVD or thyromegaly appreciated. RESPIRATORY: Chest is symmetrical. No intercostals muscle retraction or any accessory muscle activation. There is no chest wall tenderness. Breath sounds are heard bilaterally. No rales or rhonchi heard. No evidence of any consolidation. BREASTS: Deferred. HEART: The heart sounds are normal. No S3 or S4. No significant murmurs. No pericardial rub ABDOMEN: No vessel pulsations or distention. No tenderness. No organomegaly appreciated. Bowel sounds are normally heard. : Deferred. RECTAL: Deferred. LYMPHATIC: No lymphadenopathy noted in the neck. EXTREMITIES: No edema or cyanosis. No clubbing. MUSCULOSKELETAL: No acute joint deformities or swelling SKIN: There are no significant rashes or ecchymosis NEUROPSYCHIATRIC: The patient is alert and oriented x3. Appears to be in a good mood. No tremors or rigidity noted. Data 08/23/25 03:56 08/23/25 03:56 Other Labs: Laboratory Last Values WBC 9.76 10^3/uL (3.29-11.43) 08/23/25 03:56 RBC 4.39 10^6/uL (3.85-5.65) 08/23/25 03:56 Hgb 13.00 g/dL (11.27-16.99) 08/23/25 03:56 Hct 39.5 % (36-47) 08/23/25 03:56 MCV 90.0 fl (85-98) 08/23/25 03:56 MCH 29.6 pg (27-33) 08/23/25 03:56 MCHC 32.9 g/dL (30-55) 08/23/25 03:56 RDW 12.9 % (12.1-15.1) 08/23/25 03:56 Plt Count 330 10^3/cmm (157-399) 08/23/25 03:56 MPV 10.8 fL (7.4-10.4) H 08/23/25 03:56 Neut % (Auto) 64.6 % 08/23/25 03:56 Lymph % (Auto) 26.9 % 08/23/25 03:56 [place] % (Auto) 5.9 % 08/23/25 03:56 Eos % (Auto) 1.7 % 08/23/25 03:56 Baso % (Auto) 0.5 % 08/23/25 03:56 Neut # (Auto) 6.29 10^3/uL (1.8-7.7) 08/23/25 03:56 Lymph # (Auto) 2.6 10^3/uL (0.8-4.8) 08/23/25 03:56 [place] # (Auto) 0.6 10^3/uL (0.2-0.9) 08/23/25 03:56 Eos # (Auto) 0.2 10^3/uL (0.0-0.8) 08/23/25 03:56 Baso # (Auto) 0.1 10^3/uL (0.0-0.1) 08/23/25 03:56 Nucleated RBC % (auto) 0 % 08/23/25 03:56 Nucleated RBCs # 0.0 /100WBC 08/23/25 03:56 APTT 78.7 SECONDS (23.9-36.7) H 08/23/25 03:56 Sodium 140 mmol/L (136-145) 08/23/25 03:56 Potassium 3.7 mmol/L (3.5-5.1) 08/23/25 03:56 Chloride 105 mmol/L (98-107) 08/23/25 03:56 Carbon Dioxide 24 mmol/L (22-29) 08/23/25 03:56 Anion Gap 14.7 (5-19) 08/23/25 03:56 BUN 6 mg/dL (6-20) 08/23/25 03:56 Creatinine 0.9 mg/dL (0.5-0.9) 08/23/25 03:56 GFR Calculation 68.0 mL/min (90-130) L 08/23/25 03:56 Glucose 88 mg/dL (65-115) 08/23/25 03:56 Estimat Average Glucose 103 08/22/25 13:48 Hemoglobin A1c 5.2 % (4.0-6.0) 08/22/25 13:48 Calculated Osmolality 287 mOsm/kg (285-295) 08/23/25 03:56 Calcium 8.8 mg/dL (8.5-10.5) 08/23/25 03:56 Phosphorus 3.1 mg/dL (2.5-4.5) 08/23/25 03:56 Magnesium 2.2 mg/dL (1.7-2.3) 08/23/25 03:56 Total Bilirubin 0.4 mg/dL (0.15-1.2) 08/23/25 03:56 AST 18 U/L (0-32) 08/23/25 03:56 ALT 20 U/L (0-33) 08/23/25 03:56 Alkaline Phosphatase 73 U/L (35-105) 08/23/25 03:56 Troponin T Baseline 315 ng/L (0-10) H* 08/22/25 13:48 Troponin T 120 Minute 312.2 ng/L (0-10) H 08/22/25 15:26 Delta Troponin T -2.8 ABS# (0-10) L 08/22/25 15:26 Troponin T Hi Sens 6Hr 362.0 ng/L (0-10) H 08/22/25 21:00 Troponin T Hi Sens 6Hr Delta 47.0 ng/L (0-12) H* 08/22/25 21:00 NT-Pro-B Natriuret Pep 701 pg/mL (0-125) H 08/22/25 15:26 Total Protein 6.4 g/dL (6.6-8.7) L 08/23/25 03:56 Albumin 4.0 g/dL (3.5-5.2) 08/23/25 03:56 Globulin 2.4 g/dL (1.3-4.6) 08/23/25 03:56 Triglycerides 106 mg/dL (0-150) 08/22/25 15: Cholesterol 233 mg/dL (0-200) H 08/22/25 15: LDL Cholesterol, Calc 171 mg/dL (50-129) H 08/22/25 15: HDL Cholesterol 41 mg/dL (60-100) L 08/22/25 15: LDL/HDL Ratio 4.17 RATIO (0.00-3.22) H 08/22/25 15: Cholesterol/HDL Ratio 5.68 mg/dL (0.0-4.40) H 08/22/25 15: TSH 2.30 uIU/mL (0.27-4.20) 08/22/25 15:26 A&P Assessment and plan 1. Non-ST elevated myocardial infarction: In view of presenting symptoms , abnormal EKG and the elevated troponin T, her clinical features are consistent with a an unstable angina with a non-ST elevation myocardial infarction. She seems to be stable hemodynamically. 2. Accelerated hypertension: Patient had a blood pressure of 193/124 at the time of admission. The blood pressure seems to be coming down. I may add amlodipine 5 mg p.o. now and daily. She received the first dose of amlodipine last night. The blood pressure seems to be responding slowly. 3. Dyslipidemia: Patient was found to have elevated LDL of 171. I may start her on a higher dose of statin namely Lipitor 80 mg p.o. now and daily. She need to have follow-up evaluation for any liver or muscle injury. So far she is tolerating the medication well 4. Smoking addiction: Patient is strongly advised to quit smoking. Plan: Patient is scheduled for the cardiac catheterization this morning. She is NPO. Based on the angiogram findings, further recommendations will be made Risks, benefits and alternatives were discussed. Patient understood this well and consented to proceed. PDMP PDMP Reviewed: Not Reviewed Attestations Medical Necessity Statement*: Patient requires continued hospital stay for close monitoring and further management Coding Level of Care Code 30940 Diagnoses Non-ST elevated myocardial infarction I21.4 Accelerated hypertension I10 Dyslipidemia E78.5 Smoking addiction F17.200
--- NOTE | 2025-08-23 08:28 | W.PM.OPSUD ---
Surgery/Procedure H&P Update DATE OF PROCEDURE: August 23, 2025 DATE H&P PERFORMED: 08/22/25 H&P UPDATE INFORMATION: I have reviewed H&P completed within last 30 days, I have examined patient prior to procedure and No changes to prior documentation PREOP DIAGNOSIS: ASHD PRIMARY INDICATION FOR PROCEDURE: Unstable angina/NSTEMI PLANNED PROCEDURE: Left heart catheterization with a left and right coronary angiogram and possible PCI PATIENT REASSESSED PRIOR TO SEDATION, WITH NO CHANGE NOTED: Yes PHYSICAL EXAM: alert, oriented x 3, clear to auscultation bilaterally, regular rate & rhythm and operative site marked AIRWAY EVAL/ANESTHESIA PLAN: normal airway, see other exam findings, ASA III, Monitored Anesthesia, Local Anesthesia, Risks, benefits & alternatives of sedation and/or procedure discussed and Patient agrees to continue as planned
--- NOTE | 2025-08-23 09:30 | PC.CHAP ---
Pastoral Care Encounter/Spiritual Assessment Type of Contact [] Declined checker cashier visit [] Patient/Family/Request visit [] Outpatient visit [] Follow-up visit [] Physician referral [] Code/Alert [x] Routine visit [] Staff referral [] Actively dying [] Patient sleeping [x] Family support [] [] Out of room [] Palliative care [] [] Receiving care in room [] Pre-surgical visit [] Trauma [] Long length of stay [] ICU visit [] Other: Relational/Emotional Strength [x] Patient feels connected with others/family/visitors/staff [] Distress [] Loneliness/isolation [] Abandonment Spirituality of Patient [x] Person of Jaye [] Attends Buddhist of their Jaye [x] Believes in Prayer [] Reads Bible or Buddhist materials [] There are Spiritual issues to be addressed Textile Broker Interventions [x] Prayer [x] Active listening [] Non-anxious presence [x] Spiritual/emotional support [] Crisis/trauma care [] Spiritual counseling [] Bereavement support [] Provided bereavement packet [] Provided Bible/devotional materials [] Provided toy/stuffed animal, coloring book to patient or family member [] Provided Communion [] Anointing/[place]rison [] Salvation [x] Completed spiritual assessment [] Other: Impact on Illness or Injury [] Angry [] Fearful [] Anxious [] Often cries [] Exhaustion [] Unable to work [] Unable to attend pentecostalism [] Unable to walk/stand [] Unable to read [] Unable to drive [] Unable to eat/drink [] Unable to sleep [] Unable to be with family [] Patient intubated [] Other: Summary Time spent with patient 5 min
--- NOTE | 2025-08-23 10:14 | PM.PROC ---
Procedure Note: Date of procedure: 08/23/25 Pre-procedure diagnosis: NSTEMI Post-procedure diagnosis: other Procedure: Diagnostic angiogram performed by Dr. Silva. Intervention performed by Dr. Marie. Severe mid left circumflex artery stenosis. Status post PCI with 1 stent. Mid LAD has moderate stenosis. iFR was performed with significant value of 0.89. Status post PCI with 1 stent. RCA is patent. Dual antiplatelet therapy with aspirin and Plavix. High intensity statin therapy. Performing Provider: Bob Marie Complications: None Condition: stable Coding Level of Care Code Acute Code for [facility] Fwd
--- NOTE | 2025-08-23 10:22 | PC.NURSE ---
patient received from laboratory aide s/p [facility] with right femoral access. Sheath in place with pressure bag. Site is free from bleeding or hematoma formation. Right lower extremity warm to touch with pedal pulses present. Patient also has TR band in place to right wrist for attempted access only. Instructed patient on site care with restrictions. patient verbalized understanding.
[2025-08-23 12:27] LABS: Partial Thromboplastin Time 230.1 SECONDS (23.9-36.7)
--- NOTE | 2025-08-23 12:57 | P.PN_ITS ---
Subjective 2 Subjective: Patient was seen this morning, he is alert oriented x 3, following commands, no chest pain, status post coronary angiogram and stenting Vitals/I&O/Wt Last Vital Signs Temp 98.6 F 08/23/25 08:00 Pulse 77 08/23/25 12:00 Resp 14 08/23/25 12:00 BP 134/85 08/23/25 12:00 Pulse Ox 96 08/23/25 08:00 O2 Del Method Room Air 08/23/25 10:20 08/22/25 08/23/25 08/23/25 22:59 06:59 14:59 Intake Total 161.667 / 161.667 136.333 / 298.000 76.8 / 76.8 Balance 161.667 / 161.667 136.333 / 298.000 76.8 / 76.8 Weight last 48 hrs Weight 88.5 kg Weight 92.4 kg Weight 89.811 kg Physical Exam 2 Const: COMMON NORMALS: no acute distress and patient oriented x3 Resp: COMMON NORMALS: normal respiratory effort, No retractions, No use of accessory muscles and clear to auscultation bilaterally AUSCULTATION: clear to auscultation bilaterally Cardio: COMMON NORMALS: regular rate, regular rhythm, S1 normal heart sound present and S2 normal heart sound present RATE: regular rate RHYTHM: r egular rhythm HEART SOUNDS: S1 normal heart sound present and S2 normal heart sound present GI: COMMON NORMALS: Normal to inspection, nondistended, normoactive bowel sounds present and non-tender Extremity: COMMON NORMALS: no calf tenderness and no pedal edema Neuro: COMMON NORMALS: patient oriented x3 Psych: COMMON NORMALS: mental status grossly normal Data 08/23/25 03:56 08/23/25 03:56 A&P Assessment and plan 1. Accelerated hypertension: 2. Non-ST elevated myocardial infarction: 3. Unstable angina: Plan: Unstable angina - With NSTEMI - Initial troponin 315, no acute ST-T wave changes, T wave inversion in lead III CONCLUSIONS Normal LV size with borderline low ejection fraction of 52%. Mild diffuse hypokinesis of the inferolateral wall segment. Thickened mitral valve. No significant stenotic or regurgitant lesions Normal chamber sizes There is no pericardial effusion. There are no intracardiac masses. No similar previous studies are available for comparison - Status post tenting mid left circumflex, mid LAD Plan - Cardiac diet -Stat cardiac echo -Plavix 300 mg, followed by 75 mg -Aspirin 325 followed by 81 mg - Switch DVT prophylaxis Lovenox -Monitor for recurrent chest pain -Nitro for apparent chest pain -Coreg -Cardiology consulted -Full code -Heparin for DVT prophylaxis PDMP PDMP Reviewed: Not Reviewed Attestations 2 Medical Necessity Statement*: Patient requires hospitalization for NSTEMI, chest pain Diagnoses Accelerated hypertension I10 Non-ST elevated myocardial infarction I21.4 Unstable angina I20.0
[2025-08-23 14:34] LABS: Partial Thromboplastin Time 28.4 SECONDS (23.9-36.7)
--- NOTE | 2025-08-23 15:39 | PC.NURSE ---
Initiated sheath removal from right groin at 1505 per protocol. Hemostasis achieved immediately. Maintained pressure to site for 20 min. Covered site with folded 4x4 and bio-occlusive dresssing. No s/s of bleeding or hematoma observed. Instructed patient regarding site care with restrictions. patient verbalize complete understanding.
[2025-08-23] MEDS: pantoprazole 40 mg SDV IVP (18:03)
[2025-08-24] VITALS (24 sets, daily range): BP systolic 113–142; BP diastolic 65–98; PULSE 61–142; RESP 14–22; TEMP 36.2–36.6; O2SAT 99
--- NOTE | 2025-08-24 04:59 | PC.NURSE ---
patient reported vaginal bleeding while using the restroom. Patient stated she had had her period 2 weeks ago and wasn't expecting it. Patient received 7500 units of heparin in laborer tin can and nurse informed that sometimes unexpected bleeding can occur. Nurse instructed patient to let her know if bleeding became heavier.
[2025-08-24 06:06] LABS: Hematocrit 40.6 % (36-47); Hemoglobin 12.60 g/dL (11.27-16.99); Mean Corpuscular HGB Conc 31.0 g/dL (30-55); Mean Corpuscular Hemoglobin 29.4 pg (27-33); Mean Corpuscular Volume 94.6 fl (85-98); Nucleated Red Blood Cells % 0 %; Platelet Count 327 10^3/cmm (157-399); Red Blood Count 4.29 10^6/uL (3.85-5.65); White Blood Count 10.70 10^3/uL (3.29-11.43)
[2025-08-24 06:13] LABS: Alanine Aminotransferase 17 U/L (0-33); Albumin Level 3.9 g/dL (3.5-5.2); Alkaline Phosphatase 71 U/L (35-105); Aspartate Amino Transferase 22 U/L (0-32); Blood Urea Nitrogen 11 mg/dL (6-20); Calcium 8.8 mg/dL (8.5-10.5); Carbon Dioxide 22 mmol/L (22-29); Chloride 105 mmol/L (98-107); Globulin 2.6 g/dL (1.3-4.6); Glucose 91 mg/dL (65-115); Osmolality Calculated 283 mOsm/kg (285-295); Sodium 137 mmol/L (136-145); Total Protein 6.5 g/dL (6.6-8.7)
[2025-08-24 06:21] LABS: Anion Gap 13.8 (5-19); Potassium 3.8 mmol/L (3.5-5.1)
--- NOTE | 2025-08-24 07:25 | PC.NURSE ---
Patient is s/p C with right femoral access. No s/s of bleeding or hematoma formation observed. Instructed patient on site care with restrictions. Patient verbalized understanding.
--- NOTE | 2025-08-24 07:32 | P.PN_ITS ---
Subjective 2 Subjective: The patient underwent left radical radiation with the left and right coronary angiogram and LV angiogram yesterday. She was found to have a high-grade lesion in the circumflex artery. Hemodynamically significant lesion in the mid LAD. She underwent PCI of both of these lesions yesterday. Currently she is remaining stable with no recurrence of chest pain. No palpitations or shortness of breath. Vitals are stable. Medications: Medication Review Details: Current Medications Acetaminophen (Acetaminophen 325 Mg Tablet) 650 mg PO Q6H PRN PRN Reason: Mild/Mod Pain Or Temp >/= 101 Last Admin: 08/23/25 21:18 Dose: 650 mg Amlodipine Besylate (Amlodipine 5 Mg Tablet) 5 mg PO DAILY [facility] Last Admin: 08/24/25 04:37 Dose: 5 mg Aspirin (Aspirin 81 Mg Ec Tablet) 81 mg PO DAILY [facility] Last Admin: 08/24/25 04:37 Dose: 81 mg Atorvastatin Calcium (Atorvastatin 40 Mg Tablet) 80 mg PO BEDTIME [facility] Last Admin: 08/23/25 20:26 Dose: 80 mg Carvedilol (Carvedilol 3.125 Mg Tablet) 3.125 mg PO Q12H [facility] Last Admin: 08/24/25 04:37 Dose: 3.125 mg Clopidogrel Bisulfate (Clopidogrel 75 Mg Tablet) 75 mg PO DAILY [facility] Last Admin: 08/24/25 04:37 Dose: 75 mg Enoxaparin Sodium (Enoxaparin 40 Mg/0.4 Ml Syringe) 40 mg SUBCUT Q24H [facility] Last Admin: 08/24/25 07:24 Dose: Not Given Morphine Sulfate (Morphine 4 Mg/Ml Sdv 1 Ml) 2 mg IVP Q4H PRN PRN Reason: SEVERE PAIN Naloxone HCl (Naloxone 0.4 Mg/Ml Sdv) 0.1 mg IVP Q2M PRN PRN Reason: OPIATERV Nitroglycerin (Nitroglycerin 0.4 Mg Sublingual Tablet) 0.4 mg SUBLINGUAL Q5M PRN PRN Reason: CHEST PAIN Ondansetron HCl (Ondansetron 2 Mg/Ml Sdv 2 Ml) 4 mg IVP Q8H PRN PRN Reason: vomiting, or N/V if npo Pantoprazole Sodium (Pantoprazole 40 Mg Sdv) 40 mg IVP Q24H [facility] Last Admin: 08/23/25 18:03 Dose: 40 mg Vitals/I&O/Wt Last Vital Signs Temp 97.9 F 08/24/25 04:00 Pulse 78 08/24/25 06:00 Resp 17 08/24/25 05:00 BP 128/72 08/24/25 05:00 Pulse Ox 99 08/24/25 04:00 O2 Del Method Room Air 08/24/25 04:00 08/23/25 08/24/25 08/24/25 22:59 06:59 14:59 Intake Total 480 / 556.8 360 / 916.8 Output Total Balance 479 / 555.8 360 / 915.8 Weight last 48 hrs Weight 194 lb 14.218 oz Weight 195 lb 1.745 oz Weight 203 lb 11.314 oz Weight 198 lb Physical Exam 2 Narrative: GENERAL: The patient is alert and oriented times three. Not in any acute distress. Moderately obese HEENT: No significant pallor, icterus or lymphadenopathy.Oral cavity: There are no mucous membrane lesions. NECK: Trachea appears to be central. No masses noted. No JVD or thyromegaly appreciated. RESPIRATORY: Chest is symmetrical. No intercostals muscle retraction or any accessory muscle activation. There is no chest wall tenderness. Breath sounds are heard bilaterally. No rales or rhonchi heard. No evidence of any consolidation. BREASTS: Deferred. HEART: The heart sounds are normal. No S3 or S4. No significant murmurs. No pericardial rub ABDOMEN: No vessel pulsations or distention. No tenderness. No organomegaly appreciated. Bowel sounds are normally heard. : Deferred. RECTAL: Deferred. LYMPHATIC: No lymphadenopathy noted in the neck. EXTREMITIES: No edema or cyanosis. No clubbing. No hematoma or bleeding at the arterial puncture site in the groin MUSCULOSKELETAL: No acute joint deformities or swelling SKIN: There are no significant rashes or ecchymosis NEUROPSYCHIATRIC: The patient is alert and oriented x3. Appears to be in a good mood. No tremors or rigidity noted. Data 08/24/25 05:40 08/24/25 05:40 Other Labs: Laboratory Last Values WBC 10.70 10^3/uL (3.29-11.43) 08/24/25 05:40 RBC 4.29 10^6/uL (3.85-5.65) 08/24/25 05:40 Hgb 12.60 g/dL (11.27-16.99) 08/24/25 05:40 Hct 40.6 % (36-47) 08/24/25 05:40 MCV 94.6 fl (85-98) 08/24/25 05:40 MCH 29.4 pg (27-33) 08/24/25 05:40 MCHC 31.0 g/dL (30-55) D 08/24/25 05:40 RDW 13.2 % (12.1-15.1) 08/24/25 05:40 Plt Count 327 10^3/cmm (157-399) 08/24/25 05:40 MPV 11.0 fL (7.4-10.4) H 08/24/25 05:40 Neut % (Auto) 78.6 % 08/24/25 05:40 Lymph % (Auto) 14.7 % 08/24/25 05:40 [place] % (Auto) 5.0 % 08/24/25 05:40 Eos % (Auto) 1.0 % 08/24/25 05:40 Baso % (Auto) 0.3 % 08/24/25 05:40 Neut # (Auto) 8.42 10^3/uL (1.8-7.7) H 08/24/25 05:40 Lymph # (Auto) 1.6 10^3/uL (0.8-4.8) 08/24/25 05:40 [place] # (Auto) 0.5 10^3/uL (0.2-0.9) 08/24/25 05:40 Eos # (Auto) 0.1 10^3/uL (0.0-0.8) 08/24/25 05:40 Baso # (Auto) 0.0 10^3/uL (0.0-0.1) 08/24/25 05:40 Nucleated RBC % (auto) 0 % 08/24/25 05:40 Nucleated RBCs # 0.0 /100WBC 08/24/25 05:40 APTT 28.4 SECONDS (23.9-36.7) D 08/23/25 14:09 Sodium 137 mmol/L (136-145) 08/24/25 05:40 Potassium 3.8 mmol/L (3.5-5.1) 08/24/25 05:40 Chloride 105 mmol/L (98-107) 08/24/25 05:40 Carbon Dioxide 22 mmol/L (22-29) 08/24/25 05:40 Anion Gap 13.8 (5-19) 08/24/25 05:40 BUN 11 mg/dL (6-20) 08/24/25 05:40 Creatinine 1.0 mg/dL (0.5-0.9) H 08/24/25 05:40 GFR Calculation 60.2 mL/min (90-130) L 08/24/25 05:40 Glucose 91 mg/dL (65-115) 08/24/25 05:40 Estimat Average Glucose 103 08/22/25 13:48 Hemoglobin A1c 5.2 % (4.0-6.0) 08/22/25 13:48 Calculated Osmolality 283 mOsm/kg (285-295) L 08/24/25 05:40 Calcium 8.8 mg/dL (8.5-10.5) 08/24/25 05:40 Phosphorus 3.1 mg/dL (2.5-4.5) 08/23/25 03:56 Magnesium 2.2 mg/dL (1.7-2.3) 08/23/25 03:56 Total Bilirubin 0.6 mg/dL (0.15-1.2) 08/24/25 05:40 AST 22 U/L (0-32) 08/24/25 05:40 ALT 17 U/L (0-33) 08/24/25 05:40 Alkaline Phosphatase 71 U/L (35-105) 08/24/25 05:40 Troponin T Baseline 315 ng/L (0-10) H* 08/22/25 13:48 Troponin T 120 Minute 312.2 ng/L (0-10) H 08/22/25 15:26 Delta Troponin T -2.8 ABS# (0-10) L 08/22/25 15:26 Troponin T Hi Sens 6Hr 362.0 ng/L (0-10) H 08/22/25 21:00 Troponin T Hi Sens 6Hr Delta 47.0 ng/L (0-12) H* 08/22/25 21:00 NT-Pro-B Natriuret Pep 701 pg/mL (0-125) H 08/22/25 15:26 Total Protein 6.5 g/dL (6.6-8.7) L 08/24/25 05:40 Albumin 3.9 g/dL (3.5-5.2) 08/24/25 05:40 Globulin 2.6 g/dL (1.3-4.6) 08/24/25 05:40 Triglycerides 106 mg/dL (0-150) 08/22/25 15:26 Cholesterol 233 mg/dL (0-200) H 08/22/25 15:26 LDL Cholesterol, Calc 171 mg/dL (50-129) H 08/22/25 15:26 HDL Cholesterol 41 mg/dL (60-100) L 08/22/25 15: LDL/HDL Ratio 4.17 RATIO (0.00-3.22) H 08/22/25 15:26 Cholesterol/HDL Ratio 5.68 mg/dL (0.0-4.40) H 08/22/25 15:26 TSH 2.30 uIU/mL (0.27-4.20) 08/22/25 15:26 A&P Assessment and plan 1. Non-ST elevated myocardial infarction: Cardiac catheterization findings as mentioned above. Patient is currently stable. May continue on the current management. 2. Accelerated hypertension: The blood pressure seems to be responding appropriately to the current medications. Current medications may be continued. 3. Dyslipidemia: Patient is on high-dose statin. This may be continued. 4. Smoking addiction: Patient is strongly advised to quit smoking. Importance of lifestyle modification were discussed. Plan: Patient may continue on the current medications. Strongly advised to quit smoking. Patient will be seen at [facility] in 1 to 2 weeks. Patient will be seen by me in 1 month Patient is advised to continue the medications as mentioned above. The importance of compliance to diet, medications and exercise were discussed. Strongly advised to quit smoking In the event of the patient developing chest pain ,unusual palpitations or any new symptoms, is advised to contact me or come to the hospital. PDMP PDMP Reviewed: Not Reviewed Attestations 2 Medical Necessity Statement*: Possible discharge home today Coding Level of Care Code 53562 Diagnoses Non-ST elevated myocardial infarction I21.4 Accelerated hypertension I10 Dyslipidemia E78.5 Smoking addiction F17.200
--- NOTE | 2025-08-24 11:19 | P.DS_ITS ---
Discharge Providers Date of Admission: 08/22/25 15:49 Date of Discharge: August 24, 2025 Attending Provider at Admission: Apolinar Headley MD Attending Provider at Discharge: Tai Rocha MD Diagnoses at Discharge Discharge Diagnosis 1. Non-ST elevated myocardial infarction: 2. Accelerated hypertension: 3. Dyslipidemia: 4. Smoking addiction: Reason for Visit Reason for Visit: CP and both Shoulder pain Hospital Course Hospital Course Cyndi Godoy is a 45 year old female with a past medical history of hypertension, who presents [facility] for chest pain. Patient reports that she started developing chest pain last Thursday, was substernal radiating up to her neck, associated with shortness of breath she noticed that her blood pressure was elevated her systolic blood pressure was over 200, she tells me that she has a history of hypertension, she was diagnosed with it a few years ago, she thought it was secondary to her consumption of energy drinks, and she stopped using energy drinks and her blood pressure improved so she stopped her blood pressure medications. She denies being , she has had a b ilateral tubal ligation. She denies using energy drinks. She does smoke. She does vape. Denies any drug use such as cocaine. She reports that today she had substernal chest pain radiating up to her neck, currently the chest pain has improved but is persisting to some degree she describes the pain as a pressure- like pain, aching in her chest Patient was admitted to [facility] for unstable angina, NSTEMI: - Initial troponin 315, no acute ST-T wave changes, T wave inversion in lead III CONCLUSIONS Normal LV size with borderline low ejection fraction of 52%. Mild diffuse hypokinesis of the inferolateral wall segment. Thickened mitral valve. No significant stenotic or regurgitant lesions Normal chamber sizes There is no pericardial effusion. There are no intracardiac masses. No similar previous studies are available for comparison - Status post tenting mid left circumflex, mid LAD - Monitored as inpatient no recurrent chest pain - Discharged on aspirin, statin, Plavix, Coreg amlodipine - Advised to quit smoking - If any recurrent chest pain further emergency room - Lifestyle modifications - Discussed with primary care provider about GLP-1 analogs or Jardiance/Januvia Physical Exam Const: COMMON NORMALS: no acute distress and patient oriented x3 Resp: COMMON NORMALS: normal respiratory effort, No retractions, No use of accessory muscles and clear to auscultation bilaterally AUSCULTATION: clear to auscultation bilaterally Cardio: COMMON NORMALS: regular rate, regular rhythm, S1 normal heart sound present and S2 normal heart sound present RATE: regular rate RHYTHM: regular rhythm HEART SOUNDS: S1 normal heart sound present and S2 normal heart sound present GI: COMMON NORMALS: Normal to inspection, nondistended, normoactive bowel sounds present and non-tender Extremity: COMMON NORMALS: no pedal edema Neuro: COMMON NORMALS: patient oriented x3 Psych: COMMON NORMALS: mental status grossly normal Discharge Data Studies Completed and Pending Completed Studies During Hospitalization Category Date Time Status XR chest 1V portable [id number] Urgent Exams 08/22/25 13:37 Completed CV. 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 Laboratory Results WBC 10.70 10^3/uL (3.29-11.43) 08/24/25 05:40 RBC 4.29 10^6/uL (3.85-5.65) 08/24/25 05:40 Hgb 12.60 g/dL (11.27-16.99) 08/24/25 05:40 Hct 40.6 % (36-47) 08/24/25 05:40 MCV 94.6 fl (85-98) 08/24/25 05:40 MCH 29.4 pg (27-33) 08/24/25 05:40 MCHC 31.0 g/dL (30-55) D 08/24/25 05:40 RDW 13.2 % (12.1-15.1) 08/24/25 05:40 Plt Count 327 10^3/cmm (157-399) 08/24/25 05:40 MPV 11.0 fL (7.4-10.4) H 08/24/25 05:40 Neut % (Auto) 78.6 % 08/24/25 05:40 Lymph % (Auto) 14.7 % 08/24/25 05:40 [place] % (Auto) 5.0 % 08/24/25 05:40 Eos % (Auto) 1.0 % 08/24/25 05:40 Baso % (Auto) 0.3 % 08/24/25 05:40 Neut # (Auto) 8.42 10^3/uL (1.8-7.7) H 08/24/25 05:40 Lymph # (Auto) 1.6 10^3/uL (0.8-4.8) 08/24/25 05:40 [place] # (Auto) 0.5 10^3/uL (0.2-0.9) 08/24/25 05:40 Eos # (Auto) 0.1 10^3/uL (0.0-0.8) 08/24/25 05:40 Baso # (Auto) 0.0 10^3/uL (0.0-0.1) 08/24/25 05:40 Nucleated RBC % (auto) 0 % 08/24/25 05:40 Nucleated RBCs # 0.0 /100WBC 08/24/25 05:40 APTT 28.4 SECONDS (23.9-36.7) D 08/23/25 14:09 Sodium 137 mmol/L (136-145) 08/24/25 05:40 Potassium 3.8 mmol/L (3.5-5.1) 08/24/25 05:40 Chloride 105 mmol/L (98-107) 08/24/25 05:40 Carbon Dioxide 22 mmol/L (22-29) 08/24/25 05:40 Anion Gap 13.8 (5-19) 08/24/25 05:40 BUN 11 mg/dL (6-20) 08/24/25 05:40 Creatinine 1.0 mg/dL (0.5-0.9) H 08/24/25 05:40 GFR Calculation 60.2 mL/min (90-130) L 08/24/25 05:40 Glucose 91 mg/dL (65-115) 08/24/25 05:40 Estimat Average Glucose 103 08/22/25 13:48 Hemoglobin A1c 5.2 % (4.0-6.0) 08/22/25 13:48 Calculated Osmolality 283 mOsm/kg (285-295) L 08/24/25 05:40 Calcium 8.8 mg/dL (8.5-10.5) 08/24/25 05:40 Phosphorus 3.1 mg/dL (2.5-4.5) 08/23/25 03:56 Magnesium 2.2 mg/dL (1.7-2.3) 08/23/25 03:56 Total Bilirubin 0.6 mg/dL (0.15-1.2) 08/24/25 05:40 AST 22 U/L (0-32) 08/24/25 05:40 ALT 17 U/L (0-33) 08/24/25 05:40 Alkaline Phosphatase 71 U/L (35-105) 08/24/25 05:40 Troponin T Baseline 315 ng/L (0-10) H* 08/22/25 13:48 Troponin T 120 Minute 312.2 ng/L (0-10) H 08/22/25 15:26 Delta Troponin T -2.8 ABS# (0-10) L 08/22/25 15:26 Troponin T Hi Sens 6Hr 362.0 ng/L (0-10) H 08/22/25 21:00 Troponin T Hi Sens 6Hr Delta 47.0 ng/L (0-12) H* 08/22/25 21:00 NT-Pro-B Natriuret Pep 701 pg/mL (0-125) H 08/22/25 15:26 Total Protein 6.5 g/dL (6.6-8.7) L 08/24/25 05:40 Albumin 3.9 g/dL (3.5-5.2) 08/24/25 05:40 Globulin 2.6 g/dL (1.3-4.6) 08/24/25 05:40 Triglycerides 106 mg/dL (0-150) 08/22/25 15:26 Cholesterol 233 mg/dL (0-200) H 08/22/25 15:26 LDL Cholesterol, Calc 171 mg/dL (50-129) H 08/22/25 15:26 HDL Cholesterol 41 mg/dL (60-100) L 08/22/25 15:26 LDL/HDL Ratio 4.17 RATIO (0.00-3.22) H 08/22/25 15:26 Cholesterol/HDL Ratio 5.68 mg/dL (0.0-4.40) H 08/22/25 15:26 TSH 2.30 uIU/mL (0.27-4.20) 08/22/25 15:26 Vitals Last Vital Signs Temp 97.2 F L 08/24/25 07:40 Pulse 99 08/24/25 07:40 Resp 22 H 08/24/25 07:40 BP 142/98 08/24/25 07:40 Pulse Ox 99 08/24/25 07:40 O2 Del Method Room Air 08/24/25 07:40 Discharge Plan Discharge Patient Disposition: Home Condition: Stable Prescriptions: New nitroglycerin 0.4 mg Tablet, Sublingual 0.4 mg sublingual Q5M PRN (Reason: Chest Pain) 30 Days Qty: 30 0RF amlodipine 5 mg Tablet 5 mg PO DAILY 30 Days Qty: 30 0RF aspirin 81 mg Tablet,Delayed Release (Dr/Ec) 81 mg PO DAILY 30 Days Qty: 30 0RF carvedilol 3.125 mg Tablet 3.125 mg PO Q12H 30 Days Qty: 60 0RF clopidogrel 75 mg Tablet 75 mg PO DAILY 30 Days Qty: 30 0RF atorvastatin 40 mg Tablet 80 mg PO BEDTIME 30 Days Qty: 30 0RF No Action No Known Home Medications Discharge Order = DC NOW: Discharge Order (Routine); Ordered 08/24/25 Ordered By: Tai Rocha Referrals: Maci Whitten FNP [Nurse Practitioner, Cardiology] - 09/14/25 1:00 pm Mehreen [place] [Referring] - 08/28/25 10:00 am Discharge Diet: Cardiac Discharge Activity: Resume usual activity Patient Instructions: Angina, Coronary Angioplasty (DC), How to Stop Smoking (DC), Chronic Hypertension (DC), Heart Catheterization (DC), Opioid Safety, Patient Portal & [place] Instructions Activity Restrictions/Additional Instructions: -if any chest pain, go to emergency room -please stop smoking -please follow up with primary care for blood pressure check Discharge Attestations Time Spent in Discharge Care*: greater than 30 min Quality Metrics Clinical Quality Measures [ Acute Myocardial Infaction { Clinical Trial Participant: No; Contraindication to aspirin: None; Aspirin prescribed; Contraindication to statin: None; Statin prescribed; Contraindication to PCI: None; PCI performed;}] Coding Level of Care Code 03571 Total time (in minutes) for Discharge: 45 Diagnoses Non-ST elevated myocardial infarction I21.4 Accelerated hypertension I10 Dyslipidemia E78.5 Smoking addiction F17.200
--- NOTE | 2025-08-24 11:37 | PC.NURSE ---
patient discharged to home. Instruction provided regarding follow up appointments, new medications and site care with restrictions. Patient and spouse verbalized complete understanding. New Rx transmitted to [place]. Right groin dressing remains c,d,i without s/s of bleeding or hematoma formation observed. Patient left ambulatory to private vehicle with spouse by side.
== END 2025-08-24 11:37 | disposition home or self-care (01) | DRG 322 ==
LOC: ER 14:51 → CSU 15:49
PROVIDERS: Internal Medicine; Internal Medicine Cardiovascular Disease; Physician Assistant; Admitting Provider Family Medicine; Emergency Provider Emergency Medicine; Family Provider Nurse Practitioner; Visit Provider Family Medicine
PROC: 027136Z Dilation of Coronary Artery, Two Arteries with Three Drug-eluting Intraluminal Devices, Percutaneous Approach (ICD-10-PCS; principal; 2025-08-23 08:30)
DX: I21.4 Non-ST elevation (NSTEMI) myocardial infarction (principal); I25.10 Atherosclerotic heart disease of native coronary artery without angina pectoris; I10 Essential (primary) hypertension; E78.5 Hyperlipidemia, unspecified; F17.210 Nicotine dependence, cigarettes, uncomplicated; F17.290 Nicotine dependence, other tobacco product, uncomplicated; E78.00 Pure hypercholesterolemia, unspecified; Z82.49 Family history of ischemic heart disease and other diseases of the circulatory system
CPT/HCPCS: 36415; 71045; 80053; 80061; 83036; 83735; 83880; 84100; 84443; 84484; 85025; 85347; 85730; 93005; 93306; 93458; 93571; 94664; 96374; 99152; 99153; 99285; C1725; C1769; C1874; C1887; C1894; C9600; C9601; J0360; J1644; J2250; J2470; J3010; J3490; J7030; J9999; Q9967

== ENCOUNTER → 2025-09-14 13:11 | Outpatient (BNVA) | payer OTHER, SELFPAY | PROVIDERS: Family Provider Nurse Practitioner; Visit Provider Nurse Practitioner Family | DX: I21.4 Non-ST elevation (NSTEMI) myocardial infarction (principal); I25.10 Atherosclerotic heart disease of native coronary artery without angina pectoris; R94.31 Abnormal electrocardiogram [ECG] [EKG]; I49.8 Other specified cardiac arrhythmias | CPT/HCPCS: 93005 ==